=== PATIENT | female | born 1950 | race Caucasian/White ===

== ENCOUNTER → 2023-09-04 15:42 | Outpatient (REF) | payer MEDICARE, OTHER, SELFPAY | LOC: CLAB 15:42 | PROVIDERS: ATTENDING PHYSICIAN Urology | DX: R31.29 Other microscopic hematuria (principal) | CPT/HCPCS: 88112 ==

== ENCOUNTER → 2023-09-06 09:38 | Outpatient (REF) | payer MEDICARE, OTHER, SELFPAY | LOC: HWRAD 09:38 | PROVIDERS: ATTENDING PHYSICIAN Urology; FAMILY PHYSICIAN Internal Medicine | DX: R31.29 Other microscopic hematuria (principal); R39.89 Other symptoms and signs involving the genitourinary system; R39.15 Urgency of urination | CPT/HCPCS: 76770; 76856 ==

== ENCOUNTER → 2023-09-29 11:38 | Outpatient (REF) | payer MEDICARE, OTHER, SELFPAY | LOC: HWRAD 11:38 | PROVIDERS: ATTENDING PHYSICIAN Chiropractor; FAMILY PHYSICIAN Internal Medicine | DX: M53.2X7 Spinal instabilities, lumbosacral region (principal); R10.2 Pelvic and perineal pain | CPT/HCPCS: 72110; 72170 ==

== ENCOUNTER → 2023-11-09 10:05 | Outpatient (REF) | payer MEDICARE, OTHER, SELFPAY | LOC: DHCBC HW 10:05 | PROVIDERS: ATTENDING PHYSICIAN Internal Medicine Cardiovascular Disease; FAMILY PHYSICIAN Internal Medicine | DX: I44.7 Left bundle-branch block, unspecified (principal); R01.1 Cardiac murmur, unspecified | CPT/HCPCS: 93306 ==

== ENCOUNTER 2024-04-09 18:28 | Inpatient (IN) | payer MEDICARE, OTHER, SELFPAY ==
[2024-04-09] VITALS (14 sets, daily range): BP systolic 107–173; BP diastolic 47–125; PULSE 66; O2SAT 99; BMI 27.5; BMI 28.0
--- NOTE | 2024-04-09 12:41 | ED.PDOC.TRB ---
ED Provider Triage
-
Patient seen by provider in Triage?: Seen in Triage
Attestation: A medical screening examination has been initiated by a qualified medical provider. Based on the assessment performed at this time, it has been determined that an emergent medical condition may exist and the patient has been informed
that further medical evaluation and possible additional diagnostic testing may be needed.
HPI: This 74-year-old female presents with intractable vertigo began yesterday. Symptoms were initially resolving when she remained stationary however over the past several hours the symptoms have been constant regardless of body position or
whether the eyes are closed or open. She states that she is unable to walk in a straight line and she feels 'drunk'. Denies any speech problems, facial droop, or extremity weakness/numbness. No headaches or diplopia
GENERAL: Alert , in no apparent distress
EYE: No visual abnormalities.
NECK: Trachea midline
ENT: No visible abnormalities.
LUNGS: No acute respiratory distress
NEUROLOGICAL: Alert and oriented, no obvious nystagmus., EOMs intact. No focal upper or lower extremity weakness. Normal kounay-ip-onil and [id number]
SKIN: Skin intact. No visible changes.
MUSCULOSKELETAL: Moving extremities normally
PSYCH: Normal and appropriate interaction.
Assessment: Stroke scale negative. Benign vertigo versus vestibular neuritis versus posterior circulation CVA. Will obtain labs, EKG, and CT of the head. Onset time greater than 24 hours would not be a thrombolytic candidate or IAT candidate
This is a medical evaluation conducted in person to initiate diagnostic evaluation and provide initial therapeutics. Please see further documentation by the treating clinician.
[2024-04-09 12:57] LABS: % Basophils 1.3 % (0-2); % Eosinophils 1.5 % (0-6); % Immature Granulocytes 0.2 % (0-0.5); % Lymphocytes 29.2 % (20.5-51.1); % Neutrophils 60.8 % (42.2-75.2); Absolute Basophils 0.1 10^3/uL (0-0.2); Absolute Eosinophils 0.1 10^3/uL (0-0.7); Absolute Lymphocytes 1.5 10^3/uL (1.2-3.4); Absolute Monocytes 0.4 10^3/uL (0.1-0.6); Absolute Neutrophils 3.2 10^3/uL (1.4-6.5); Hematocrit 40.8 % (37.0-47.0); Hemoglobin 14.3 g/dL (12.0-16.0); Mean Corpuscular Hgb 28.3 pg (27.0-31.0); Mean Corpuscular Volume 80.6 fL (81.0-99.0); Mean Platelet Volume 9.9 fL (7.4-10.4); Nucleated Red Blood Cells % 0 %; Platelet Count 266 10^3/uL (130-400); Red Blood Cell Count 5.06 10^6/uL (4.20-5.40); Red Cell Dist. Width 13.3 % (11.5-14.5); White Blood Cell Count 5.3 10^3/uL (4.8-10.8)
[2024-04-09 13:16] LABS: ALT (SGPT) 22 U/L (0-35); AST (SGOT) 33 U/L (14-36); Albumin 4.5 g/dl (3.5-5.0); Alkaline Phosphatase 73 U/L (38-126); Blood Urea Nitrogen 15 mg/dl (7-17); Calcium 9.8 mg/dl (8.4-10.2); Carbon Dioxide 27 mmol/L (22-30); Chloride 102 mmol/L (98-107); Glucose 118 mg/dl (70-99); Potassium 3.9 mmol/L (3.5-5.1); Sodium 141 mmol/L (135-145); Total Bilirubin 0.8 mg/dl (0.2-1.3); eGFR > 60.00
--- NOTE | 2024-04-09 14:51 | ED.GENMED ---
History of Present Illness
General
Chief Complaint: Dizziness
Source: patient
Exam Limitations: none
Time Seen by Provider: 04/09/24 14:16
Nursing documentation reviewed up to this point in time: agreed with
History of Present Illness
History of Present Illness:
74-year-old female with past medical history of paroxysmal A-fib not currently anticoagulated not in A-fib today, diabetes hypertension hyperlipidemia presenting to the emergency department today with concerns of dizziness starting yesterday evening
seems to be better with sitting still and made worse with certain positioning insert including laying back and quick head movements. She claims that today she noticed she was having some unsteadiness even with her eyes closed earlier today with .
Come to the ER. Denies of such. Denies any numbness weakness or additional concerns.
Past History
Past History
ED Past Medical History: Cancer, HTN, Hypercholesterolemia and IDDM
ED Past Surgical History: Gynecological and Orthopedic
Social History
Tobacco: Former smoker
Living: with family
Review of Systems
Review of Systems
Allergies reviewed?: Yes
All Other Systems: ROS reviewed and negative except as documented in HPI and ROS
Phy Exam
Physical Exam
Physical Exam:
GENERAL: Alert , in no apparent distress
EYE: pupils equal and reactive
NECK: Supple, no significant adenopathy.
ENT: o/p clr, mmm.
CARDIAC: Regular rate and rhythm .
LUNGS: Clear breath sounds bilaterally, no acute respiratory distress, no wheezes/rales/rhonchi
ABDOMEN: Soft, without focal tenderness, no r/g, no cvat
NEUROLOGICAL: Alert and oriented, no focal neuro deficits 5 out of 5 upper and lower extremity strength normal sensation when palpating bilaterally normal finger-nose and heel durant no pronator drift
SKIN: Warm and dry, skin intact.
MUSCULOSKELETAL: No edema, well perfused.
PSYCH: Normal and appropriate interaction.
Course
Orders/Labs/Results
Orders:
Orders
04/09/24 12:38
Electrocardiogram (*1) Urgent
Reason for Study: Vertigo / Dizzy
CT Head W/o Iv Contrast Urgent
Comment:
Reason For Exam: vertigo
EKG- Treatment ONCE
04/09/24 12:47
Complete Blood Count/With Diff Urgent
Comprehensive Metabolic Panel Urgent
04/09/24 14:48
Meclizine [Antivert] 50 mg PO NOW STA
Pt Eval And Treat Urgent
Treatment: vestibular
Activity Level: Ambulate
04/09/24 15:28
EKG [Electrocardiogram (*1)] Urgent
Reason for Study: Tachycardia
EKG- Treatment ONCE
04/09/24 15:56
Echo 2D MMode Color/Doppler Routine
Reason for Study: Dizziness with ectopy on telemetry
04/09/24 16:01
Add On- LAB Routine
Tests Added?: TSH reflex to T4
Abnormal Lab Results
04/09/24
12:47
MCV 80.6 L fL
(81.0-99.0)
Glucose 118 H mg/dl
(70-99)
04/09/24 12:47
04/09/24 12:47
Vital Signs
Initial and Last Documented VS:
Initial Vital Signs
Temp Pulse Resp BP Pulse Ox
97.8 F 90 18 173/98 96
04/09/24 12:37 04/09/24 12:37 04/09/24 12:37 04/09/24 12:37 04/09/24 12:37
Last Documented Vital Signs
Temp Pulse Resp BP Pulse Ox
98.5 F 92 17 165/66 100
04/09/24 14:37 04/09/24 14:45 04/09/24 14:45 04/09/24 14:37 04/09/24 14:45
MDM/Problems Addressed
MDM/Problems Addressed:
74-year-old female presenting to the emergency department today with concerns of unsteady gait room spinning dizziness and feeling off balance starting last night made worse with movement and changes in positioning some degree of symptoms at rest.
Here she claims when sitting very still her symptoms have resolved. Denies any chest pain shortness of breath numbness weakness or any additional neurologic symptoms. Head CT negative and labs unremarkable. EKG sinus rhythm. Symptoms
significantly reproducible when laying patient flat. Evelyn-Hallpike maneuver was positive.
1545: While the patient was getting assessed by physical therapy she felt very sick nauseous and appeared to have a run of V. tach. She said still symptoms seem to improve she did have occasional PVCs for a few minutes thereafter when watched on
the monitor. Case was discussed with cardiology the recommended admitting the patient for further assessment echo and monitoring.
*Critical Care Note
Total Time (30-74mins, 75-104mins- exclusive of procedures): Not Applicable
ED Attending Note
-
Portions of this chart may have been created with voice recognition software.� Occasional wrong word or��sound alike� substitutions may have occurred due to the inherent limitations of voice recognition software.
Discharge Plan
Departure
Patient Disposition: Admit
Date of Disposition: 04/09/24
Time of Disposition: 16:22
Admit to: Telemetry
Admit to doctor: Dorisy
Presentation/result/management discussed w/ accepting MD/DO: Hospitalist
Patient with high blood pressure during this ER visit?: No
Condition: Good
Covid-19: Not Applicable
Discharge Problem:
Vertigo, Frequent PVCs
Prescriptions:
No Action
levothyroxine 88 MCG tablet
88 mcg PO DAILY
insulin aspart U-100 [Novolog U-100 Insulin aspart] 1,000 UNITS/10 ML solution
0 units SC QID PRN (Reason: high blood sugar)
lisinopril [Prinivil] 40 MG tablet
20 mg PO BID
cholecalciferol (vitamin D3) [Vitamin D3] 1,000 UNIT capsule
1,000 unit PO DAILY
Altoprev 40 MG tablet extended release 24 hr
40 mg PO QPM
Levemir FlexTouch U100 Insulin 300 UNIT/3 ML insulin pen
0 unit SC DAILY
Calcium + D Soft Chewable Tab
1 tab PO DAILY
Multiple Vitamins
1 tab PO DAILY
Insulin Detemir Pen Pen.Injctr
0 units SC HS
amlodipine 5 MG tablet
5 mg PO DAILY
gabapentin 300 MG capsule
300 mg PO BID Qty: 20 0RF
Referrals:
Ml Santiago DO [Family Provider] -
Interventions
Interventions:
*Risk Screen - Suicide Last Done: 04/09/24 14:37
*General Assessment Last Done: 04/09/24 14:37
*Neglect/Abuse Screening Last Done: 04/09/24 14:37
ED- Fall Risk Assessment Last Done: 04/09/24 14:37
*ED COVID-19 Vaccine History Last Done: 04/09/24 14:37
ED- Neurological Assessment Last Done: 04/09/24 14:37
ED- Cardiac Assessment Last Done: 04/09/24 14:37
ED Swallowing Screen Last Done: 04/09/24 14:37
Discharge Date and Time
Print Language: PERSIAN
[2024-04-09] MEDS: ANTIVERT 50 MG PO (15:16)
--- NOTE | 2024-04-09 15:55 | CON.CAR ---
Addendum entered and electronically signed by Toby Teixeira MD 04/09/24 17:27:
Patient seen and examined in collaboration with CERTIFIED SHORTHAND REPORTER; agree with below.
-74-year-old female with medical history as outlined below presenting with dizziness, consistent with vertigo.
-Cardiology consulted for frequent PVCs and possible VT; possible/likely incidental finding.
-Patient denies any chest pain, shortness of breath, or palpitations.
-Case discussed with EP Cardiology; patient has intermittent left bundle branch block on previous EKGs.
-Will start patient on an amiodarone drip, per EP Cardiology recommendations.
-Echocardiogram today.
-playground monitor in IVU.
-Will follow; EP Cardiology to evaluate patient tomorrow.
Original Note:
Consultation
Consultation Request
Date/Time Consultation Requested: 04/09/2024 15:45
Date/Time Consultation Performed: 04/09/2024 16:00
Requesting Provider: QUIANA Calvillo
Performing Provider: CECILIA Chambers for Dr. Teixeira
Reason for Consultation: Ectopy on telemetry
Medical History
-
Chief Complaint: Dizziness
History of Present Illness:
Shirley Crouch is a 74-year-old female (known to Dr. Mercado, her primary heading pinner), with hypertension, hypercholesterolemia, type 1 diabetes mellitus, prior left-sided breast cancer status post mastectomy/XRT/chemotherapy, and single episode
of paroxysmal atrial fibrillation in the postoperative setting who presented to the emergency department the chief complaint of dizziness. This has been ongoing for nearly 24 hours. It got better with sitting still. It got worse with certain
positions such as lying flat. It makes her feel very unsteady that she needs to hold on to something for assistance. She feels like she is going to fall even when in the seated position. Cardiology was consulted for ectopy on telemetry.
Past Medical History
Past Medical History: Arrhythmias (Paroxysmal atrial fibrillation [single episode in the postoperative setting]), Cancer (Breast), HTN, Hypercholesterolemia and IDDM
Past Surgical History: Gynecological and Orthopedic
Social History
Tobacco: Former Smoker
Alcohol: None
Drug: None
Living: With Family
Employment: Retired
Family History
Family History: Reviewed & Not Pertinent
Allergies / Home Medications
Allergy/AdvReac Type Severity Reaction Status Date / Time
adhesive tape Allergy Unknown Verified 04/09/24 12:41
�Medication �Instructions �Recorded �Confirmed �Type
Calcium + D Soft Chewable Tab 1 tab PO DAILY 10/28/15 04/09/24 History
Insulin Detemir Pen 0 units SC HS 10/28/15 04/09/24 History
Multiple Vitamins 1 tab PO DAILY 10/28/15 04/09/24 History
amlodipine 5 mg tablet 5 mg PO DAILY 10/28/15 04/09/24 History
cholecalciferol (vitamin D3) 25 1,000 unit PO DAILY 10/28/15 04/09/24 History
mcg (1,000 unit) capsule (Vitamin
D3)
insulin aspart U-100 100 unit/mL 0 units SC QID PRN high blood sugar 10/28/15 04/09/24 History
subcutaneous solution (Novolog
U-100 Insulin aspart)
insulin detemir U-100 100 unit/mL 0 unit SC DAILY 10/28/15 04/09/24 History
(3 mL) subcutaneous pen (Levemir
FlexTouch U-100 Insulin)
levothyroxine 88 mcg tablet 88 mcg PO DAILY 10/28/15 04/09/24 History
lisinopril 40 mg tablet (Prinivil) 20 mg PO BID 10/28/15 04/09/24 History
lovastatin 40 mg tablet,extended 40 mg PO QPM 10/28/15 04/09/24 History
release 24 hr (Altoprev)
gabapentin 300 mg capsule 300 mg PO BID #20 caps 07/27/20 04/09/24 Rx
Review of Systems
-
History Source: Patient
All other systems: Negative unless noted
Constitutional: No Symptoms
EENT: No Symptoms
Respiratory: No Symptoms
Cardiac: No Symptoms
Abdomen/GI: No Symptoms
: No Symptoms
Musculoskeletal: No Symptoms
Skin: No Symptoms
Neurological: Dizzy and Other (Lightheaded, off-balance)
Endocrine: No Symptoms
Hematologic/Lymphatic: No Symptoms
Physical Exam
Vital Signs
Temp Pulse Resp BP Pulse Ox
98.5 F 92 17 165/66 100
04/09/24 14:37 04/09/24 14:45 04/09/24 14:45 04/09/24 14:37 04/09/24 14:45
Lab Results
04/09/24 12:47
04/09/24 12:47
Physical Exam
General: Well Developed, Well Nourished, No Apparent Distress and Comfortable
HEENT: Normocephalic, Anicteric and Moist Mucous Membranes
Respiratory: Clear and Non Labored Respirations
Cardiac: S1/S2 and Regular Rhythm
Breast: Deferred by me
GI: Soft, Non Tender, Non Distended and Normal Bowel Sounds
Rectal: Deferred by Provider
Genito-urinary: No Costovertebral Tender
Musculoskeletal: No Clubbing, No Cyanosis and No Edema
Skin: Warm and Dry
Neuro: AO x 3
Hematologic/Lymphatic: No Lymphadenopathy
Psych: Calm
Impression / Plan
-
NSVT
-Could be playing a role in symptoms
-Hard to rule out NSVT as there are narrow complexes as well
-Evidence of aberration on 2017 telemetry monitoring in the post procedure setting
-Start amiodarone drip
-Echocardiogram
-EP consult in a.m.
LBBB, seen on outpatient EKGs in [id number] (cardiology office visits), not currently present
Vertigo, intractable
-Evelyn-Hallpike maneuver was positive
Paroxysmal atrial fibrillation
-Single episode after breast reconstructive surgery
-She is not on oral anticoagulation
LBBB, not seen on EKG today
HTN, on amlodipine & lisinopril
Type I DM, managed by endocrine (Dr. Salas)
Moderate mitral regurgitation
Aortic sclerosis without stenosis
Mild to moderate tricuspid regurgitation
HLD, managed by her Quality Supervisor
Prior breast cancer (stage IIB ER/DE positive, HER2 negative), S/P left sided mastectomy with 11 lymph nodes removed, XRT, and chemotherapy, followed by [facility]
Former smoker, continued cessation recommended
Data Reviewed
-
EKG: Report Reviewed by me (Sinus rhythm with PACs, rate 86; sinus rhythm, rate 74)
CT Scan: Report Reviewed by me (Head: No acute intracranial abnormality noted.)
Labs: Labs Reviewed by me
Old Records: Reviewed
[2024-04-09 17:27] LABS: TSH Reflex To Free T4 0.04 uIU/ml (0.47-4.68)
[2024-04-09 17:57] LABS: Free T4 2.41 ng/dl (0.78-2.19)
--- NOTE | 2024-04-09 17:58 | W.PN.HOSP.TC ---
Today's Communication/Plan
-
Cardio consult
Antivert scheduled
Assessment / Plan
Assessment / Plan
Acute onset vertigo type dizziness
worsens with change in position, moving head or eyes
NSVT
tele monitor demonstrated changes consistent with this. Denies feeling of palpitations
Hx of PAF that occurred immediately following cancer surgery and to the best of pt's knowledge has not recurred
Hx of Left Breast Cancer
s/p mastectomy, chemoRx and XRT 2017 at [facility]. As per pt, [facility]
HLD
IDDM on insulin pump
P:Cardio consult
Amiodarone has been started by cardio
full code
see dictated note
Anticipated Discharge: > 48 hours
Subjective/Interval History
-
Date of Service: April 09, 2024
dizziness worsens with movement and with turning head
Objective Data
-
Labs:
Laboratory Results
04/09/24
12:47
WBC 5.3
Hgb 14.3
Hct 40.8
Plt Count 266
Sodium 141
Potassium 3.9
Chloride 102
Carbon Dioxide 27
BUN 15
Creatinine 0.8
Glucose 118 H
Calcium 9.8
Total Bilirubin 0.8
AST 33
ALT 22
Alkaline Phosphatase 73
Vital Signs:
Vital Signs
Temp Pulse Resp BP Pulse Ox
98.5 F 83 12 165/75 98
04/09/24 14:37 04/09/24 17:15 04/09/24 17:15 04/09/24 17:00 04/09/24 17:15
Review of Systems
-
History Source: Patient, Physician (reviewed with Dr. Teixeira) and Coordinated Provider
Constitutional: Denies Fever
EENT: Reports No Symptoms Reported
Respiratory: Reports No Symptoms
Cardiac: Reports No Symptoms; Denies Chest Pain
Abdomen/GI: Reports No Symptoms
Genitourinary: Reports No Symptoms
Musculoskeletal: Reports No Symptoms
Neuro: Reports Dizzy
Physical Exam
-
General: Well Developed, Well Nourished and No Apparent Distress
HEENT: Normocephalic, Atraumatic, Moist Mucous Membranes and Other (no nystagmus)
Respiratory: Clear to Auscultation; Negative Wheezes, Rales or Rhonchi
Cardiac: Regular Rhythm and S1/S2
GI: Soft, Nontender and Nondistended
Musculoskeletal: No Clubbing, No Cyanosis and No Edema
Neuro: Awake, Alert and Oriented
[2024-04-09] MEDS: CORDARONE 518 MG IV (18:57)
[2024-04-09] MEDS: ZOFRAN 4 MG IV (20:28)
[2024-04-09] MEDS: CRESTOR 10 MG PO (20:28)
[2024-04-09] MEDS: ANTIVERT 12.5 MG PO (20:28)
[2024-04-09 22:01] LABS: Urine Albumin Negative (Neg - Trace); Urine Bilirubin Negative (Negative); Urine Character Clear (Clear); Urine Color Straw; Urine Glucose Negative (Negative); Urine Ketone 1+ (Negative); Urine Leukocyte Negative (Negative); Urine Nitrite Negative (Negative); Urine Occult Blood 2+ (Negative); Urine Urobilinogen Negative (Neg - 1+)
[2024-04-09 22:22] LABS: Urine Bacteria Few (Negative); Urine White Cell 0-2 /HPF (0-5)
[2024-04-09 22:28] LABS: Glucose - Point of Care 189 mg/dl (70-99)
[2024-04-09] MEDS: PATIENT'S OWN INSULIN PUMP 3 UNITS SC (23:27)
[2024-04-09] MEDS: HEPARIN 5000 UNITS SC (23:28)
[2024-04-10] VITALS (11 sets, daily range): BP systolic 105–158; BP diastolic 53–74; PULSE 78; O2SAT 97; BMI 27.9
--- NOTE | 2024-04-10 03:17 | PTCARENOTE ---
02:30 am noted redness above Amiodarone gtt IV side, pt also c/o mild discomfort. IV catheter removed, arm elevated and warm compress applied. New INT restarted by IV team, Amiodarone resumed.
--- NOTE | 2024-04-10 03:25 | VATNOTE ---
CALLED TO ASSESS PREVIOUS IV AMIO GTT INFUSION SITE. AREA IS SLIGHTLY FIRM AND PINK AND PT REPORTS MINIMAL TENDERNESS. SITE HAD BEEN REMOVED AND RUE ELEVATED ON PILLOW WITH DRY HEAT PER PROTOCOL. NEW IV SITE ESTABLISHED DOCUMENTED. PCN TO
MONITOR PHLEBITIC SITE.
[2024-04-10] MEDS: SYNTHROID 88 MCG PO (04:50)
[2024-04-10 05:10] LABS: Hematocrit 41.4 % (37.0-47.0); Hemoglobin 14.7 g/dL (12.0-16.0); Mean Corp Hgb Conc. 35.5 g/dL (33.0-37.0); Mean Corpuscular Hgb 28.3 pg (27.0-31.0); Mean Corpuscular Volume 79.6 fL (81.0-99.0); Mean Platelet Volume 10.8 fL (7.4-10.4); Platelet Count 284 10^3/uL (130-400); Red Cell Dist. Width 13.1 % (11.5-14.5)
[2024-04-10 05:31] LABS: ALT (SGPT) 20 U/L (0-35); AST (SGOT) 33 U/L (14-36); Albumin 4.3 g/dl (3.5-5.0); Alkaline Phosphatase 67 U/L (38-126); Blood Urea Nitrogen 12 mg/dl (7-17); Calcium 9.7 mg/dl (8.4-10.2); Carbon Dioxide 28 mmol/L (22-30); Chloride 101 mmol/L (98-107); Estimated Creatinine Clearance 63 ml/min; Glucose 119 mg/dl (70-99); HDL Cholesterol 91 mg/dl; LDL Cholesterol, Calculated 62 mg/dl; Potassium 3.5 mmol/L (3.5-5.1); Sodium 140 mmol/L (135-145); Total Bilirubin 0.9 mg/dl (0.2-1.3); Total Cholesterol 166 mg/dl (50-199); Total Protein 6.9 g/dl (6.3-8.2); Triglyceride 67 mg/dl (10-149); Very Low Density Lipoprotein 13 mg/dl (0-30); eGFR > 60.00
[2024-04-10 05:41] LABS: Troponin I 0.018 ng/ml
--- NOTE | 2024-04-10 07:56 | W.PN.CD ---
Today's Communication / Plan
-
- Lexiscan when able.
- Switch IV amiodarone to PO
- Telemetry and Bardy at the time of discharge unless AF noted.
Impression / Plan
-
NSVT
-NSVT vs SVT with aberrancy
-Could be playing a role in symptoms
-Aberrancy with LBBB is seen in lower heart rates as well. It is unstable LBB conduction.
-No sign of ACS but would want to rule out coronary artery stenosis.
-Hard to rule out NSVT as there are narrow complexes as well
-Evidence of aberration on 2017 telemetry monitoring in the post procedure setting
-On amiodarone drip
-Echocardiogram 04/09/24: LVEF 65%. Moderate MR, Severe Biatrial enlargement.
LBBB, seen on outpatient EKGs in [id number] (cardiology office visits), not currently present
-Aberrant conduction shows LBBB
-Even present in lower heart rates
- Lexiscan when able.
Vertigo, intractable
-Goodman-Hallpike maneuver was positive
-BPPV
Paroxysmal atrial fibrillation
-Single episode after breast reconstructive surgery
-She is not on oral anticoagulation
-The SVT is short lived but could be AT from PVs and somewhat irregular. With severely enlarged LA, AF is very likely wiht the risk factors.
-Continue telemetry.
LBBB, not seen on EKG today
HTN, on amlodipine & lisinopril
Type I DM, managed by endocrine (Dr. Salas)
Moderate mitral regurgitation
Aortic sclerosis without stenosis
Mild to moderate tricuspid regurgitation
HLD, managed by her Extrusion Manager
Prior breast cancer (stage IIB ER/UT positive, HER2 negative), S/P left sided mastectomy with 11 lymph nodes removed, XRT, and chemotherapy, followed by [facility]
Former smoker, continued cessation recommended
Physical Exam
Vital Signs/Labs
Vital Signs
Temp Pulse Resp BP Pulse Ox
98.5 F 82 20 145/64 98
04/10/24 07:16 04/10/24 07:30 04/10/24 07:16 04/10/24 07:19 04/10/24 07:16
04/09/24 04/10/24 04/11/24
06:59 06:59 06:59
Actual Weight 69 kg
04/10/24 04:36
04/10/24 04:36
Triglycerides 67 mg/dl (10-149) 04/10/24 04:36
LDL Cholesterol, Calc 62 mg/dl 04/10/24 04:36
VLDL Cholesterol, Calc 13 mg/dl (0-30) 04/10/24 04:36
HDL Cholesterol 91 mg/dl 04/10/24 04:36
Free T4 2.41 ng/dl (0.78-2.19) H 04/09/24 12:47
LAB Results
04/10/24
04:36
Troponin I 0.018
Physical Exam
Constitutional: No acute distress and Comfortable
EENT: Anicteric and Moist mucous membranes
Cardiovascular: Rhythm & rate is regular, Pedal edema is absent, JVD pressure is normal and Systolic murmur present
Respiratory: Respiratory effort normal, Lungs clear to auscul. and Wheeze Absent
GI: Soft, Non tender and Normal bowel sounds
Neuro/Psych: Alert, Oriented, AO x 3 and Motor deficits absent
Data Reviewed
-
Date of Service: April 10, 2024
Medical Decision Making: Reviewed Test Results, Independent Historian Assessment and Test Interpretation
EKG: Tracing Personally Visualized and interpreted
Echo: Report Reviewed by me
Labs: Labs Reviewed by me
Old Records: Reviewed
[2024-04-10 08:39] LABS: Glycohemoglobin (HgbA1c) 5.4 % (4.0-5.6)
[2024-04-10 08:42] LABS: Glucose - Point of Care 132 mg/dl (70-99)
[2024-04-10] MEDS: ASPIR LOW (ENTERIC COATED) 81 MG PO (08:54)
[2024-04-10] MEDS: ORETIC 12.5 MG PO (08:54)
[2024-04-10] MEDS: ZESTRIL 20 MG PO (08:55)
[2024-04-10] MEDS: PATIENT'S OWN INSULIN PUMP 2.3 UNITS SC (08:59)
[2024-04-10] MEDS: ANTIVERT 12.5 MG PO ×3 (08:59→22:30)
[2024-04-10] MEDS: OSCAL 500 + D 500 MG PO (08:59)
[2024-04-10] MEDS: EVISTA 60 MG PO (09:00)
[2024-04-10] MEDS: HEPARIN 5000 UNITS SC ×3 (09:01→23:58)
[2024-04-10] MEDS: NORVASC 5 MG PO (09:01)
--- NOTE | 2024-04-10 09:09 | CM ---
Reviewed chart. Met with Mrs. Crouch to review discharge plans. She states prior to admission she resides alone in a one story home without any steps to enter. She states prior to admission she was independent with ambulation and adls.. She
states she does not have any DME in the home. She states she has a prescription plan and uses [facility]. Medical work-up in progress. The discharge plan is to return home when medically stable.
[2024-04-10] MEDS: KCL 20 MEQ PO (10:19)
[2024-04-10 10:42] LABS: Magnesium 2.1 mg/dl (1.6-2.3)
[2024-04-10 12:58] LABS: Glucose - Point of Care 146 mg/dl (70-99)
--- NOTE | 2024-04-10 16:52 | W.PN.HOSP.TC ---
Today's Communication/Plan
-
continue Antivert
decrease Synthroid
Assessment / Plan
Assessment / Plan
Acute onset vertigo type dizziness
worsens with change in position, moving head or eyes. This has lessened since admission and starting Antivert, but interestingly noted nystagmus today on rt lateral gaze and not at time of admission.
NSVT
tele monitor demonstrated changes consistent with this. Denies feeling of palpitations
appreciate input from cardio, concern for possible ischemic aspect. Mag 2.1
Hx of PAF that occurred immediately following cancer surgery and to the best of pt's knowledge has not recurred
Hx of Left Breast Cancer
s/p mastectomy, chemoRx and XRT 2017 at [facility]. As per pt, [facility]
HLD
IDDM on insulin pump
a1c 5.4%
Hypothyroid
TSH 0.04 with free T4 2.41, possibly playing a role in symptoms, will decrease dose, hold tomorrow's dose
P:Cardio consult
Amiodarone has been started by cardio
full code
Anticipated Discharge: 24 - 48 hours
Subjective/Interval History
-
Date of Service: April 10, 2024
Awake, alert, dizziness has lessened
Objective Data
-
Labs:
Laboratory Results
04/10/24
04:36
WBC 7.0
Hgb 14.7
Hct 41.4
Plt Count 284
Sodium 140
Potassium 3.5
Chloride 101
Carbon Dioxide 28
BUN 12
Creatinine 0.7
Glucose 119 H
Calcium 9.7
Total Bilirubin 0.9
AST 33
ALT 20
Alkaline Phosphatase 67
Vital Signs:
Vital Signs
Temp Pulse Resp BP Pulse Ox
99.1 F 72 20 124/62 95
04/10/24 14:46 04/10/24 11:30 04/10/24 14:46 04/10/24 11:21 04/10/24 14:46
I&O
04/09/24 04/10/24 04/11/24
06:59 06:59 06:59
Intake Total 300 / 300
Balance 300 / 300
Review of Systems
-
History Source: Patient and Coordinated Provider
Constitutional: Denies Fever
EENT: Reports No Symptoms Reported
Respiratory: Reports No Symptoms
Cardiac: Reports No Symptoms; Denies Chest Pain
Abdomen/GI: Reports No Symptoms
Genitourinary: Reports No Symptoms
Musculoskeletal: Reports No Symptoms
Neuro: Reports Dizzy (has lessened)
Physical Exam
-
General: Well Developed, Well Nourished and No Apparent Distress
HEENT: Normocephalic, Atraumatic, Moist Mucous Membranes and Other (mild rt sided nystagmus)
Respiratory: Clear to Auscultation; Negative Wheezes, Rales or Rhonchi
Cardiac: Regular Rhythm and S1/S2
GI: Soft, Nontender and Nondistended
Musculoskeletal: No Clubbing, No Cyanosis and No Edema
Neuro: Awake, Alert and Oriented
[2024-04-10] MEDS: PATIENT'S OWN INSULIN PUMP 2.1 UNITS SC (16:59)
[2024-04-10] MEDS: CRESTOR 10 MG PO (17:00)
[2024-04-10 18:41] LABS: Glucose - Point of Care 117 mg/dl (70-99)
--- NOTE | 2024-04-10 19:20 | PTCARENOTE ---
Pt had a run from 1820 to 1824 of SVT/VT/Atrial tach. Pt in the bathroom. Asymptomatic. Dr. Sam notified and then spoke with Dr. Childs. 8Pm dose of amio to be given early.
[2024-04-10] MEDS: PATIENT'S OWN INSULIN PUMP 3 UNITS SC (19:28)
[2024-04-10] MEDS: PACERONE 400 MG PO (19:32)
[2024-04-10 22:16] LABS: Glucose - Point of Care 129 mg/dl (70-99)
[2024-04-10] MEDS: PATIENT'S OWN INSULIN PUMP 0.3 UNITS SC (22:32)
--- NOTE | 2024-04-10 23:52 | PTCARENOTE ---
Assumed care of patient at change of shift. Tele monitor shows SR-adam w/ occasional PVCs. Pt denies any palpitations or dizziness. Ambulates self in room w/out difficulty. This RN instructed patient to ring for nursing staff if any symptoms are
present. Patient aware to maintain NPO status at midnight for scheduled stress test on 04/11. Pt can make needs known, call jimenez within reach.
[2024-04-11] VITALS (11 sets, daily range): BP systolic 112–192; BP diastolic 60–86; BMI 27.9
[2024-04-11 05:27] LABS: Blood Urea Nitrogen 18 mg/dl (7-17); Calcium 9.5 mg/dl (8.4-10.2); Carbon Dioxide 26 mmol/L (22-30); Chloride 103 mmol/L (98-107); Estimated Creatinine Clearance 44 ml/min; Glucose 101 mg/dl (70-99); Magnesium 1.9 mg/dl (1.6-2.3); Potassium 3.8 mmol/L (3.5-5.1); Sodium 141 mmol/L (135-145); eGFR 58.75
[2024-04-11] MEDS: HEPARIN SC (08:00)
[2024-04-11] MEDS: NORVASC PO (08:00)
[2024-04-11] MEDS: PATIENT'S OWN INSULIN PUMP SC ×3 (08:00→18:24)
[2024-04-11] MEDS: ORETIC PO (08:00)
[2024-04-11] MEDS: ASPIR LOW (ENTERIC COATED) 81 MG PO (08:13)
[2024-04-11] MEDS: ANTIVERT 12.5 MG PO ×3 (08:13→23:06)
[2024-04-11] MEDS: PACERONE 400 MG PO ×2 (08:13→20:55)
[2024-04-11 08:19] LABS: Glucose - Point of Care 92 mg/dl (70-99)
--- NOTE | 2024-04-11 09:41 | W.PN.CD ---
Today's Communication / Plan
-
- Lexiscan today
Impression / Plan
-
NSVT
-NSVT vs SVT with aberrancy
-Could be playing a role in symptoms
-Aberrancy with LBBB is seen in lower heart rates as well. It is unstable LBB conduction.
-No sign of ACS but would want to rule out coronary artery stenosis.
-Lexiscan today. OK to proceed today.
-Hard to rule out NSVT as there are narrow complexes as well
-Evidence of aberration on 2017 telemetry monitoring in the post procedure setting
-On amiodarone - Drip switched to PO dose now.
-Echocardiogram 04/09/24: LVEF 65%. Moderate MR, Severe Biatrial enlargement.
LBBB, seen on outpatient EKGs in [id number] (cardiology office visits), not currently present
-Aberrant conduction shows LBBB
-Even present in lower heart rates
-Lexiscan today.
Vertigo, intractable
-[place]-Hallpike maneuver was positive
-BPPV
Paroxysmal atrial fibrillation
-Single episode after breast reconstructive surgery
-She is not on oral anticoagulation
-The SVT is short lived but could be AT from PVs and somewhat irregular. With severely enlarged LA, AF is very likely with the risk factors.
-Continue telemetry.
LBBB, not seen on EKG today
HTN, on amlodipine & lisinopril
Type I DM, managed by endocrine (Dr. Salas)
Moderate mitral regurgitation
Aortic sclerosis without stenosis
Mild to moderate tricuspid regurgitation
HLD, managed by her [employer] Nurse Practitioner
Prior breast cancer (stage IIB ER/ND positive, HER2 negative), S/P left sided mastectomy with 11 lymph nodes removed, XRT, and chemotherapy, followed by [facility]
Former smoker, continued cessation recommended
Physical Exam
Vital Signs/Labs
Vital Signs
Temp Pulse Resp BP Pulse Ox
98.1 F 79 20 112/60 95
04/11/24 07:11 04/11/24 08:00 04/11/24 07:11 04/11/24 07:14 04/11/24 08:23
04/10/24 04/11/24 04/12/24
06:59 06:59 06:59
Actual Weight 69 kg 69 kg
04/10/24 04:36
04/11/24 04:51
Magnesium 1.9 mg/dl (1.6-2.3) 04/11/24 04:51
Triglycerides 67 mg/dl (10-149) 04/10/24 04:36
LDL Cholesterol, Calc 62 mg/dl 04/10/24 04:36
VLDL Cholesterol, Calc 13 mg/dl (0-30) 04/10/24 04:36
HDL Cholesterol 91 mg/dl 04/10/24 04:36
Free T4 2.41 ng/dl (0.78-2.19) H 04/09/24 12:47
LAB Results
04/10/24
04:36
Troponin I 0.018
Physical Exam
Constitutional: No acute distress and Comfortable
EENT: Anicteric and Moist mucous membranes
Cardiovascular: Rhythm & rate is regular, Pedal edema is absent, JVD pressure is normal and Systolic murmur present
Respiratory: Respiratory effort normal, Lungs clear to auscul. and Wheeze Absent
GI: Soft, Non tender and Normal bowel sounds
Neuro/Psych: Alert, Oriented and AO x 3
Data Reviewed
-
Date of Service: April 11, 2024
Medical Decision Making: Reviewed Test Results, Tests Ordered, Independent Historian Assessment, Test Interpretation and Review of Case with other Provider
EKG: Tracing Personally Visualized and interpreted
Echo: Report Reviewed by me
Labs: Labs Reviewed by me
Old Records: Reviewed
--- NOTE | 2024-04-11 11:00 | PTCARENOTE ---
Pt tolerated Lexiscan test well, please refer to Cardiac Services Monitoring Record for assessment and details. Report called to floor.
[2024-04-11 12:23] LABS: Glucose - Point of Care 124 mg/dl (70-99)
--- NOTE | 2024-04-11 13:13 | W.PN.UPDATE ---
Update Note
Progress Note Update
nuclear stress: partially reversible defect of mid to apical anterior segments and apex, consistent with ischemia, with TID 1.31.
Discussed with patient. Will proceed to cath today.
--- NOTE | 2024-04-11 13:43 | W.PN.HOSP.TC ---
Today's Communication/Plan
-
for heart cath
decrease Synthroid dose
Assessment / Plan
Assessment / Plan
Acute onset vertigo type dizziness
worsens with change in position, moving head or eyes. This has now essentially resolved since admission and starting Antivert
NSVT
tele monitor demonstrated changes consistent with this. Denies feeling of palpitations
appreciate input from cardio, concern for possible ischemic aspect. Mag 2.1. Nuc EST demonstrated partially reversible defect of mid to apical anterior segments and apex
Text from Dr. Nirmal Sam, plan is to proceed with cath
Hx of PAF that occurred immediately following cancer surgery and to the best of pt's knowledge has not recurred
Hx of Left Breast Cancer
s/p mastectomy, chemoRx and XRT 2016 at [facility]. As per pt, [facility]
HLD
IDDM on insulin pump
a1c 5.4%. Requested she check glucose prior to going down for cath, at 12:22 was 124
Hypothyroid
TSH 0.04 with free T4 2.41, dose of 04/11 held, will resume tomorrow at lower dose
pt told and explained
P:Cardio consult appreciated
Amiodarone has been started by cardio
full code
Anticipated Discharge: 24 - 48 hours
Subjective/Interval History
-
Date of Service: April 11, 2024
Vertigo symptoms essentially resolved
Objective Data
-
Labs:
Laboratory Results
04/11/24
04:51
Sodium 141
Potassium 3.8
Chloride 103
Carbon Dioxide 26
BUN 18 H
Creatinine 1.0
Glucose 101 H
Calcium 9.5
Vital Signs:
Vital Signs
Temp Pulse Resp BP Pulse Ox
98.1 F 61 20 137/61 95
04/11/24 12:20 04/11/24 13:00 04/11/24 12:20 04/11/24 12:09 04/11/24 12:20
I&O
04/10/24 04/11/24 04/12/24
06:59 06:59 06:59
Intake Total 300 / 300 480 / 480
Balance 300 / 300 480 / 480
Review of Systems
-
History Source: Patient and Coordinated Provider
Constitutional: Denies Fever
EENT: Reports No Symptoms Reported
Respiratory: Reports No Symptoms
Cardiac: Reports No Symptoms; Denies Chest Pain (reviewed and denied)
Abdomen/GI: Reports No Symptoms
Genitourinary: Reports No Symptoms
Musculoskeletal: Reports No Symptoms
Neuro: Reports Dizzy (has lessened)
Physical Exam
-
General: Well Developed, Well Nourished and No Apparent Distress
HEENT: Normocephalic, Atraumatic, Moist Mucous Membranes and Other (mild rt sided nystagmus noted 04/10, has resolved)
Respiratory: Clear to Auscultation; Negative Wheezes, Rales or Rhonchi
Cardiac: Regular Rhythm and S1/S2
GI: Soft, Nontender and Nondistended
Musculoskeletal: No Clubbing, No Cyanosis and No Edema
Neuro: Awake, Alert and Oriented
[2024-04-11] MEDS: LEXISCAN 0.4 MG IV (14:11)
[2024-04-11] MEDS: ZESTRIL 20 MG PO (14:14)
[2024-04-11 16:02] LABS: ACT-LR - POC 324 Seconds (116-155)
[2024-04-11 16:26] LABS: ACT-LR - POC 287 Seconds (116-155)
[2024-04-11 16:59] LABS: Glucose - Point of Care 89 mg/dl (70-99)
[2024-04-11] MEDS: NSS 1000 IV (17:13)
[2024-04-11] MEDS: OSCAL 500 + D PO (18:22)
[2024-04-11] MEDS: HEPARIN 5000 UNITS SC ×2 (18:23→23:06)
[2024-04-11] MEDS: CRESTOR 20 MG PO (18:23)
[2024-04-11] MEDS: EVISTA 60 MG PO (18:24)
[2024-04-11] MEDS: NORVASC 5 MG PO (18:30)
--- NOTE | 2024-04-11 19:05 | ITS.CL.PN ---
International Trade Teacher - Procedure Note
Procedure
Procedure Note:
CARDIAC CATHETERIZATION REPORT
Date of Procedure: 04/11/24
Referring: Dr. Nirmal Sam
INDICATION: ventricular arrhythmia, positive cardiac stress test
PROCEDURE:
1. Left heart catheterization
2. Coronary angiography
3. iFR of LAD
4. PCI with stent to LCx
ACCESS:
6 [place] right radial artery
CATHETERS:
1. 6 [place] JR4
2. 6 [place] JL3.5
3. 6 [place] XB 3.5
HEMODYNAMIC DATA
LV 128/7 (EDP 9) mmHg
LV 127/71 (mean 95) mmHg
CORONARY ANGIOGRAPHY
Dominance: right
LM: normal
LAD: gives rise to a several small diagonal branches. There is diffuse mild disease in the mid-distal vessel and a focal 50% stenosis in the mid vessel that was further interrogated by iFR.
LCx: gives rise to a large OM1 branch. There is a 70-80% stenosis in the mid-OM1.
RCA: gives rise to a moderate-caliber RPDA and large RPL branch. There is no coronary artery disease.
iFR of LAD
The decision was made to perform physiologic testing. The diagnostic catheter was removed over a wire and exchanged for a XB3.5 guiding catheter. The guiding catheter was advanced into the ascending aorta and seated in the LMCA. Additional heparin
was given to obtain an ACT greater than 250 seconds. An iFR wire was zeroed outside of the body, then inserted into the guiding sheath. The wire was advanced and the transducer was normalized just outside of the guiding catheter tip. The wire was
advanced into the distal LAD. Three iFR measurements were taken (0.93, 0.93, 0.92). The lesion was determined to be non-occlusive. The iFR wire was pulled back and confirmed to normalize to 1.0.
PCI to OM1
The iFR wire was exchanged for a Runthrough coronary wire which was placed in the distal OM1. Initial lesion preparation was performed with a 2.5x15 mm [place] balloon inflated to 12 madelyn. There was full expansion and improvement in lesion appearance
on subsequent angiography. Next, a 2.5x15 [place] NITZA was selected and deployed at 18 madelyn. There was a small area of mild underexpansion at the mid-stent which was further dilated with a 2.75x8 mm [place] NC balloon to 18 madelyn. This resulted in
improvement in the appearance of the area of underexpansion. Final angiography demonstrated an excellent result without evidence of complication. The wire and guide were removed and a TR band placed. The patient was loaded with 600 mg Plavix.
Closure Device: TR band
Radiation (mGy): 360.65
DAP (cm2.Gy): 30.4603
Fluoroscopy time (minutes): 17.3
CONCLUSIONS
1. Normal LV filling pressure and no aortic stenosis.
2. Single-vessel obstructive coronary artery disease in a right dominant system.
3. Successful PCI to the OM1 with placement of a 2.5x15 mm [place] NITZA post-dilated to high pressure with a 2.75 mm NC balloon. Excellent result without compilation.
RECOMMENDATIONS:
1. Expectant management after cardiac catheterization via right radial approach
2. Aggressive secondary management of CAD
3. DAPT with ASA/Plavix for at least 6 months
Copy To: Ml Santiago DO (PCP); Adrián Mercado MD (Boilermaker Fitter)
Signed: Leo Mena MD, PhD
--- NOTE | 2024-04-11 19:52 | PTCARENOTE ---
Pt had a nuclear med stress test and later a cardiac cath done via right radial artery. Radial in band. Right forearm with reddened areas from IV infiltrates present after amiodarone infusion. Pt denies any discomfort. Telemetry shows sinus rhythm
with brief runs of wide complex rhythm lasting several seconds, pt asymptomatic.
[2024-04-11 21:13] LABS: Glucose - Point of Care 165 mg/dl (70-99)
[2024-04-11] MEDS: PATIENT'S OWN INSULIN PUMP 0.8 UNITS SC (23:07)
--- NOTE | 2024-04-11 23:18 | PTCARENOTE ---
received patient at the change of shift. AAOx3. denies any cp/sob. SR on [id number]. bp elevated when checked on Rt lower leg. recheck on arm-137/77. R radial band removed-dressing applied with no issues. + radial pulse. reviewed activity
restrictions with patient and verbalized understanding. patients own insulin pump in use. site intact. ambulating in room-denies any lightheadedness/dizziness. steady on feet. call jimenez within reach. calls appropriately.
[2024-04-12 03:15] VITALS: BP 125/108
[2024-04-12 03:17] VITALS: BP 132/63
[2024-04-12 03:35] LABS: Hematocrit 39.5 % (37.0-47.0); Hemoglobin 14.1 g/dL (12.0-16.0); Mean Corp Hgb Conc. 35.7 g/dL (33.0-37.0); Mean Corpuscular Hgb 29.6 pg (27.0-31.0); Mean Corpuscular Volume 82.8 fL (81.0-99.0); Mean Platelet Volume 10.4 fL (7.4-10.4); Platelet Count 264 10^3/uL (130-400); Red Blood Cell Count 4.77 10^6/uL (4.20-5.40); White Blood Cell Count 7.4 10^3/uL (4.8-10.8)
[2024-04-12 03:59] LABS: Blood Urea Nitrogen 19 mg/dl (7-17); Calcium 9.2 mg/dl (8.4-10.2); Carbon Dioxide 24 mmol/L (22-30); Chloride 105 mmol/L (98-107); Estimated Creatinine Clearance 55 ml/min; Glucose 136 mg/dl (70-99); Potassium 3.9 mmol/L (3.5-5.1); Sodium 140 mmol/L (135-145); eGFR > 60.00
[2024-04-12] MEDS: SYNTHROID 50 MCG PO (07:40)
[2024-04-12 07:45] LABS: Glucose - Point of Care 107 mg/dl (70-99)
[2024-04-12] MEDS: PATIENT'S OWN INSULIN PUMP 3 UNITS SC (07:47)
[2024-04-12 08:38] VITALS: BP 129/61
[2024-04-12] MEDS: HEPARIN 5000 UNITS SC (09:07)
[2024-04-12] MEDS: NORVASC 5 MG PO (09:08)
[2024-04-12] MEDS: ASPIR LOW (ENTERIC COATED) 81 MG PO (09:08)
[2024-04-12] MEDS: PACERONE 400 MG PO (09:08)
[2024-04-12] MEDS: OSCAL 500 + D 500 MG PO (09:09)
[2024-04-12] MEDS: PLAVIX 75 MG PO (09:09)
[2024-04-12] MEDS: EVISTA 60 MG PO (09:09)
[2024-04-12] MEDS: ZESTRIL 20 MG PO (09:09)
[2024-04-12] MEDS: ANTIVERT 12.5 MG PO (09:09)
[2024-04-12] MEDS: ORETIC 12.5 MG PO (09:10)
[2024-04-12] MEDS: TYLENOL 650 MG PO (09:11)
--- NOTE | 2024-04-12 09:57 | W.CARD.POSTP ---
Post PCI Follow Up
Procedure
Procedure/Date: 04/11/24 Successful PCI to the OM1 with placement of a 2.5x15 mm [place] NITZA post-dilated to high pressure with a 2.75 mm NC balloon. Excellent result without compilation
Subjective: denies cp, sob
Site
Site: Radial: Right and No ht/bleeding, distal pulses palpable
Tele / EKG
SR with occ NSVT
Labs
04/12/24 03:24
04/12/24 03:24
Magnesium 1.9 mg/dl (1.6-2.3) 04/11/24 04:51
Triglycerides 67 mg/dl (10-149) 04/10/24 04:36
LDL Cholesterol, Calc 62 mg/dl 04/10/24 04:36
VLDL Cholesterol, Calc 13 mg/dl (0-30) 04/10/24 04:36
HDL Cholesterol 91 mg/dl 04/10/24 04:36
Free T4 2.41 ng/dl (0.78-2.19) H 04/09/24 12:47
DAPT Medication
DAPT Medication: Aspirin 81mg daily and Clopidogrel 75 mg daily
Plan
f/u 04/26 114 with Cass Yu NP
[2024-04-12 10:40] VITALS: O2SAT 100
[2024-04-12 11:19] VITALS: BP 103/84
--- NOTE | 2024-04-12 12:35 | W.PN.CD ---
Addendum entered and electronically signed by Adriano Sam MD 04/12/24 16:05:
74 yo female with PMH of HTN, DM, mild/mod MR admitted with NSVT and SVT with LBBB aberrancy. She also had an abnormal stress test this admission and is s/p OM1 stent 04/11. She denies CP, SOB, palps. Exam with RRR, no murmurs, no edema. Tele: SR,
SVT with aberrancy, V triplet.
CAD. s/p OM1 stent 04/11. Continue ASA/Plavix.
Arrhythmia. NSVT and SVT with LBBB aberrancy. Discussed with EP. Improved since starting amiodarone. Continue 400mg bid for 2 weeks, then once daily. Plan for 2 week monitor after 40 days of amiodarone.
Discharge planning.
Original Note:
Today's Communication / Plan
-
stable for d/c home today
outpatient follow up as scheduled
outpatient cardiac rehab
Impression / Plan
-
NSVT
-NSVT vs SVT with aberrancy
-Aberrancy with LBBB is seen in lower heart rates as well. It is unstable LBB conduction.
-Evidence of aberration on 2017 telemetry monitoring in the post procedure setting.
-Stable on Amiodarone 400mg BID, will continue.
-Plan for 2 week outpatient monitor after 40 days on Amiodarone.
-Echocardiogram 04/09/24: LVEF 65%. Moderate MR, Severe Biatrial enlargement.
-04/11/24 Successful PCI to the OM1 with placement of a 2.5x15 mm [facility] NITZA.
LBBB, seen on outpatient EKGs in [id number] (cardiology office visits), not currently present
-Aberrant conduction shows LBBB.
-04/11/24 Successful PCI to the OM1 with placement of a 2.5x15 mm [facility] NITZA.
Vertigo, intractable
-[place]-Hallpike maneuver was positive.
-BPPV.
-Per hospitalist.
Paroxysmal atrial fibrillation
-Single episode after breast reconstructive surgery
-She is not on oral anticoagulation
-The SVT is short lived but could be AT from PVs and somewhat irregular. With severely enlarged LA, AF is very likely with the risk factors.
-Plan for outpatient monitor after 40 days of being on Amiodarone 400mg BID.
LBBB, not seen on EKG today
HTN, on amlodipine & lisinopril
Type I DM, managed by endocrine (Dr. Salas)
Moderate mitral regurgitation
Aortic sclerosis without stenosis
Mild to moderate tricuspid regurgitation
HLD, managed by her Insurance Professional
Prior breast cancer (stage IIB ER/SD positive, HER2 negative), S/P left sided mastectomy with 11 lymph nodes removed, XRT, and chemotherapy, followed by [facility]
Former smoker, continued cessation recommended
Physical Exam
Vital Signs/Labs
Vital Signs
Temp Pulse Resp BP Pulse Ox
98.0 F 73 18 129/61 100
04/12/24 11:21 04/12/24 09:00 04/12/24 11:21 04/12/24 08:38 04/12/24 11:21
04/11/24 04/12/24 04/13/24
06:59 06:59 06:59
Actual Weight 152 lb 1.903 oz
04/12/24 03:24
04/12/24 03:24
Magnesium 1.9 mg/dl (1.6-2.3) 04/11/24 04:51
Triglycerides 67 mg/dl (10-149) 04/10/24 04:36
LDL Cholesterol, Calc 62 mg/dl 04/10/24 04:36
VLDL Cholesterol, Calc 13 mg/dl (0-30) 04/10/24 04:36
HDL Cholesterol 91 mg/dl 04/10/24 04:36
Free T4 2.41 ng/dl (0.78-2.19) H 04/09/24 12:47
LAB Results
04/10/24
04:36
Troponin I 0.018
Physical Exam
Constitutional: No acute distress
EENT: Anicteric and Moist mucous membranes
Cardiovascular: Rhythm & rate is regular
Respiratory: Respiratory effort normal
GI: Soft, Non tender and Normal bowel sounds
Neuro/Psych: AO x 3
Other: Skin (warm, dry) and Cath Site (intact)
Data Reviewed
-
Date of Service: April 12, 2024
Medical Decision Making: Reviewed Test Results
EKG: Tracing Personally Visualized and interpreted
Echo: Report Reviewed by me
Labs: Labs Reviewed by me
Old Records: Reviewed
[2024-04-12] MEDS: PATIENT'S OWN INSULIN PUMP 3.5 UNITS SC (13:15)
[2024-04-12 13:18] LABS: Glucose - Point of Care 123 mg/dl (70-99)
--- NOTE | 2024-04-12 14:09 | W.PN.HOSP.TC ---
Today's Communication/Plan
-
dc to home
Assessment / Plan
Assessment / Plan
Acute onset vertigo type dizziness
worsens with change in position, moving head or eyes. This has now resolved since admission and starting Antivert
NSVT
tele monitor demonstrated changes consistent with this. Denies feeling of palpitations
appreciate input from cardio, concern for possible ischemic aspect. Mag 2.1. Nuc EST demonstrated partially reversible defect of mid to apical anterior segments and apex
underwent heart cath:
1. Normal LV filling pressure and no aortic stenosis.
2. Single-vessel obstructive coronary artery disease in a right dominant system.
3. Successful PCI to the OM1 with placement of a 2.5x15 mm [place] [place] NITZA post-dilated to high pressure with a 2.75 mm NC balloon. Excellent result without compilation.
Hx of PAF that occurred immediately following cancer surgery and to the best of pt's knowledge has not recurred
Hx of Left Breast Cancer
s/p mastectomy, chemoRx and XRT 2017 at [facility]. As per pt, SENTHIL
HLD
IDDM on insulin pump
a1c 5.4%. Requested she check glucose prior to going down for cath, at 12:22 was 124
Hypothyroid
TSH 0.04 with free T4 2.41, dose of 04/11 held, will resume tomorrow at lower dose
pt told and explained
P:Cardio consult appreciated
Amiodarone has been started by cardio
full code
reviewed with Stacie kennedy at computerMore than 30 minutes spent in discharge including
Final examination of the patient
Summarizing hospital stay
Instructions for continuing care to all relevant caregivers
Preparation of discharge records, prescriptions, and referral forms
Total time spent (in minutes): 45
Anticipated Discharge: Today
Subjective/Interval History
-
Date of Service: April 12, 2024
Feels well, anxious to go home
Objective Data
-
Labs:
Laboratory Results
04/12/24
03:24
WBC 7.4
Hgb 14.1
Hct 39.5
Plt Count 264
Sodium 140
Potassium 3.9
Chloride 105
Carbon Dioxide 24
BUN 19 H
Creatinine 0.8
Glucose 136 H
Calcium 9.2
Vital Signs:
Vital Signs
Temp Pulse Resp BP Pulse Ox
98.0 F 73 18 129/61 100
04/12/24 11:21 04/12/24 09:00 04/12/24 11:21 04/12/24 08:38 04/12/24 11:21
I&O
04/11/24 04/12/24 04/13/24
06:59 06:59 06:59
Intake Total 480 / 480 1100 / 1100
Balance 480 / 480 1100 / 1100
Review of Systems
-
History Source: Patient and Coordinated Provider
Constitutional: Denies Fever
EENT: Reports No Symptoms Reported
Respiratory: Reports No Symptoms
Cardiac: Reports No Symptoms; Denies Chest Pain (reviewed and denied)
Abdomen/GI: Reports No Symptoms
Genitourinary: Reports No Symptoms
Musculoskeletal: Reports No Symptoms
Neuro: Reports Dizzy (resolved)
Physical Exam
-
General: Well Developed, Well Nourished and No Apparent Distress
HEENT: Normocephalic, Atraumatic, Moist Mucous Membranes and Other (mild rt sided nystagmus noted 04/10, has resolved)
Respiratory: Clear to Auscultation; Negative Wheezes, Rales or Rhonchi
Cardiac: Regular Rhythm and S1/S2
GI: Soft, Nontender and Nondistended
Musculoskeletal: No Clubbing, No Cyanosis and No Edema
Neuro: Awake, Alert and Oriented
--- NOTE | 2024-04-12 16:01 | PTCARENOTE ---
Pt denies any discomfort. Pt seen by PT, Cass Howard, VALENTINA Mckay and . Telemetry and IV device removed. Discharge instructions reviewed with pt regarding activity and driving guidelines, wound care, medications and their possible
side effects, reporting cares and concerns and follow up appt's. Very good understanding verbalized. Pt escorted out via wheelchair and discharged to home.
--- NOTE | 2024-04-12 18:49 | W.DS.TRANS ---
DC Summary - Lighting Specialist
-
Discharge Instructions:
Sleep Apnea Risk Low
Discharge Diagnosis/Procedures Angioplasty with stent to left circumflex artery
, Vertigo
Diet Low Cholesterol,Diabetic, Carb Controlled
Activity No strenuous activity
Driving Restrictions No driving for 24 hours
Bathing Restrictions None
Blood Work CBC, CMP, Lipid Profile, Hga1c as per usual
scheduled labs
Other Services Cardiac Rehab
Instructions:
Stand-Alone Forms: DC Instructions- Cath/EP Lab
Changes to Home Medications: Yes
Discharge Medications:
DC Medications w/original date entered in [employer]
amlodipine 5 mg tablet 5 mg PO DAILY 10/28/15
calcium carbonate 600 mg-vitamin D3 5 mcg (200 unit) tablet 1 tab PO DAILY 10/28/15
insulin aspart U-100 100 unit/mL subcutaneous solution (Novolog U-100 Insulin aspart) 0 units SC .VIA PUMP 10/28/15
levothyroxine 88 mcg tablet 88 mcg PO DAILY 10/28/15
aspirin 81 mg tablet,delayed release 81 mg PO DAILY 04/09/24
lisinopril 20 mg-hydrochlorothiazide 12.5 mg tablet 1 tab PO DAILY 04/09/24
raloxifene 60 mg tablet 60 mg PO DAILY 04/09/24
amiodarone 200 mg tablet 400 mg (2 x 200 mg) PO BID #90 tabs 04/12/24
clopidogrel 75 mg tablet 75 mg PO DAILY #30 tabs 04/12/24
meclizine 12.5 mg tablet 12.5 mg PO TID #30 tabs 04/12/24
rosuvastatin 20 mg tablet 20 mg PO QPM #30 tabs 04/12/24
Home Medication Changes
Amiodarone added, will be 400 mg bid until seen by cardiology and then adjusted
Plavix has been added
Antivert will be added and rapidly tapered
Crestor increased to 20 mg daily
Pending Results: No
== END 2024-04-12 15:30 | disposition home or self-care (01) | DRG 322 ==
LOC: IVU 18:28
PROVIDERS: Nurse Practitioner Adult Health; Physician Assistant; Student in an Organized Health Care Education/Training Program; ADMITTING PHYSICIAN Internal Medicine; CONSULT PHYSICIAN Internal Medicine; EMERGENCY PHYSICIAN Student in an Organized Health Care Education/Training Program; FAMILY PHYSICIAN Internal Medicine
PROC: 4A033BC Measurement of Arterial Pressure, Coronary, Percutaneous Approach (ICD-10-PCS; 2024-04-09)
PROC: 4A023N7 Measurement of Cardiac Sampling and Pressure, Left Heart, Percutaneous Approach (ICD-10-PCS; 2024-04-09)
PROC: 027034Z Dilation of Coronary Artery, One Artery with Drug-eluting Intraluminal Device, Percutaneous Approach (ICD-10-PCS; 2024-04-09)
PROC: B2111ZZ Fluoroscopy of Multiple Coronary Arteries using Low Osmolar Contrast (ICD-10-PCS; 2024-04-09)
DX: I25.10 Atherosclerotic heart disease of native coronary artery without angina pectoris (principal); I47.29 Other ventricular tachycardia; E03.9 Hypothyroidism, unspecified; E10.9 Type 1 diabetes mellitus without complications; I10 Essential (primary) hypertension; I49.3 Ventricular premature depolarization; E78.00 Pure hypercholesterolemia, unspecified; R42 Dizziness and giddiness; Z96.41 Presence of insulin pump (external) (internal); Z79.890 Hormone replacement therapy; Z79.899 Other long term (current) drug therapy; Z87.891 Personal history of nicotine dependence; Z86.79 Personal history of other diseases of the circulatory system; Z85.3 Personal history of malignant neoplasm of breast; Z92.21 Personal history of antineoplastic chemotherapy; Z92.3 Personal history of irradiation; Z90.12 Acquired absence of left breast and nipple; Z91.048 Other nonmedicinal substance allergy status
CPT/HCPCS: 70450; 78452; 80048; 80053; 80061; 81003; 81015; 82962; 83036; 83735; 84439; 84443; 84484; 85025; 85027; 93005; 93017; 93306; 97112; 97116; 97530; 99285; A9500; J2785

== ENCOUNTER → 2024-05-17 13:41 | Outpatient (REF) | payer MEDICARE, OTHER, SELFPAY | LOC: HWRAD 13:41 | PROVIDERS: ATTENDING PHYSICIAN Internal Medicine Endocrinology, Diabetes & Metabolism; FAMILY PHYSICIAN Internal Medicine | DX: M81.0 Age-related osteoporosis without current pathological fracture (principal) | CPT/HCPCS: 77080 ==

== ENCOUNTER → 2024-05-21 10:20 | Outpatient (REF) | payer MEDICARE, OTHER, SELFPAY | LOC: HWWDC 10:20 | PROVIDERS: ATTENDING PHYSICIAN Internal Medicine | DX: Z12.31 Encounter for screening mammogram for malignant neoplasm of breast (principal) | CPT/HCPCS: 77063; 77067 ==

== ENCOUNTER 2024-05-22 10:33 | Outpatient (RCR) | payer MEDICARE, OTHER, SELFPAY ==
[2024-05-03 11:38] LABS: Glucose - Point of Care 84 mg/dl (70-99)
[2024-05-03 11:51] LABS: Glucose - Point of Care 114 mg/dl (70-99)
[2024-05-03 12:16] LABS: Glucose - Point of Care 203 mg/dl (70-99)
[2024-05-03 12:43] LABS: Glucose - Point of Care 277 mg/dl (70-99)
[2024-05-06 09:25] LABS: Glucose - Point of Care 137 mg/dl (70-99)
[2024-05-06 10:16] LABS: Glucose - Point of Care 160 mg/dl (70-99)
[2024-05-08 09:17] LABS: Glucose - Point of Care 135 mg/dl (70-99)
[2024-05-08 10:14] LABS: Glucose - Point of Care 185 mg/dl (70-99)
[2024-05-09 08:36] LABS: Glucose - Point of Care 125 mg/dl (70-99)
[2024-05-09 09:35] LABS: Glucose - Point of Care 164 mg/dl (70-99)
[2024-05-13 09:31] LABS: Glucose - Point of Care 120 mg/dl (70-99)
[2024-05-13 10:26] LABS: Glucose - Point of Care 183 mg/dl (70-99)
[2024-05-15 09:26] LABS: Glucose - Point of Care 135 mg/dl (70-99)
[2024-05-15 10:19] LABS: Glucose - Point of Care 188 mg/dl (70-99)
== END 2024-05-22 23:59 | disposition home or self-care (01) ==
LOC: CRHB 10:33
PROVIDERS: ATTENDING PHYSICIAN Internal Medicine Cardiovascular Disease; FAMILY PHYSICIAN Internal Medicine
DX: I25.10 Atherosclerotic heart disease of native coronary artery without angina pectoris (principal); Z95.5 Presence of coronary angioplasty implant and graft
CPT/HCPCS: 82962; 93797; 93798; G0422; G0423

== ENCOUNTER 2024-06-07 09:23 | Outpatient (RCR) | payer MEDICARE, OTHER, SELFPAY | END 2024-06-07 11:16 | disposition home or self-care (01) | LOC: CRHB 09:23 | PROVIDERS: ATTENDING PHYSICIAN Internal Medicine Cardiovascular Disease; FAMILY PHYSICIAN Internal Medicine | DX: I25.10 Atherosclerotic heart disease of native coronary artery without angina pectoris (principal); Z95.5 Presence of coronary angioplasty implant and graft | CPT/HCPCS: G0422; G0423 ==

== ENCOUNTER → 2025-04-18 14:48 | Outpatient (REF) | payer MEDICARE, OTHER, SELFPAY ==
[2025-04-18 15:26] LABS: Blood Urea Nitrogen 26 mg/dl (7-17); Calcium 9.6 mg/dl (8.4-10.2); Carbon Dioxide 33 mmol/L (22-30); Chloride 101 mmol/L (98-107); Glucose 188 mg/dl (70-99); Potassium 3.9 mmol/L (3.5-5.1); Sodium 138 mmol/L (135-145); eGFR > 60.00
== END ==
LOC: RAD 14:48
PROVIDERS: FAMILY PHYSICIAN Internal Medicine
DX: R10.32 Left lower quadrant pain (principal)
CPT/HCPCS: 36415; 74178; 80048; Q9967

== ENCOUNTER → 2025-05-22 11:46 | Outpatient (REF) | payer MEDICARE, OTHER, SELFPAY | LOC: HWWDC 11:46 | PROVIDERS: ATTENDING PHYSICIAN Internal Medicine | DX: Z12.31 Encounter for screening mammogram for malignant neoplasm of breast (principal) | CPT/HCPCS: 77063; 77067 ==